=== PATIENT | female | born 1965 | race African-American/Black ===

== ENCOUNTER 2018-08-27 06:49 | Emergency (ER) | payer OTHER ==
[~2018-08-27] VITALS: Ht 160 cm; Wt 70.3 kg
[2018-08-27 07:00] VITALS: TEMP 97.7
[2018-08-27 09:33] LABS: PLATELET COUNT 265 K/uL (152-353)
[2018-08-27 14:05] VITALS: BP 122/89
== END 2018-08-27 14:04 | disposition home or self-care (01) ==
LOC: EDBD 06:49 → ED 06:49
PROVIDERS: Emergency Medicine
DX: M79.18 Myalgia, other site (principal); M54.5 Low back pain; R10.32 Left lower quadrant pain
CPT/HCPCS: 81000; 85027; 96372; 99283; J1885; Q9963

== ENCOUNTER 2019-03-01 15:53 | Emergency (ER) | payer OTHER ==
[~2019-03-01] VITALS: Ht 160 cm; Wt 80.3 kg
[2019-03-01 15:59] VITALS: TEMP 97.7
[2019-03-01 16:51] LABS: PLATELET COUNT 286 K/uL (152-353)
[2019-03-01 17:03] LABS: POTASSIUM 3.9 mmol/L (3.6-5.2); SODIUM 143 mmol/L (136-145)
[2019-03-01 18:00] VITALS: BP 122/84
== END 2019-03-01 18:24 | disposition home or self-care (01) ==
LOC: ED 15:53
PROVIDERS: Family Medicine
DX: R07.89 Other chest pain (principal); G43.909 Migraine, unspecified, not intractable, without status migrainosus; R42 Dizziness and giddiness
CPT/HCPCS: 36415; 80053; 81000; 82550; 84484; 85027; 93005; 96372; 96374; 99284; J2405; J3030